=== PATIENT | female | born 1975 | race African-American/Black ===

== ENCOUNTER 2022-12-19 07:36 | Day surgery (SDC) | payer BC ==
[2022-12-12 16:25] VITALS: BMI 28.1
[2022-12-19 09:26] VITALS: TEMP 98.1
[2022-12-19 09:28] VITALS: BP 121/76; PULSE 63; RESP 19
== END 2022-12-19 09:25 | disposition home or self-care (01) ==
LOC: FASU-ENDO 07:36
PROVIDERS: ATTEND Internal Medicine Gastroenterology
PROC: 0DJD8ZZ Inspection of Lower Intestinal Tract, Via Natural or Artificial Opening Endoscopic (ICD-10-PCS; principal; 2022-12-19 08:40)
DX: Z12.11 Encounter for screening for malignant neoplasm of colon (principal); Z83.71 Family history of colonic polyps
CPT/HCPCS: 81025; 82962